=== PATIENT | female | born 1985 | race Caucasian/White ===

== ENCOUNTER → 2017-01-09 | Outpatient (CLI) | payer BC ==
[2017-01-09 14:28] LABS: BASOPHILS # (AUTO) 0.05 10*3/UL; BASOPHILS % (AUTO) 0.6 % (0-1); EOSINOPHILS # (AUTO) 0.18 10*3/UL; EOSINOPHILS % (AUTO) 2.2 % (0-8); LYMPHOCYTES # (AUTO) 2.65 10*3/uL; MEAN CORPUSCULAR HEMOGLOBIN 29.5 PG (27-31); MEAN CORPUSCULAR HGB CONC 33.3 g/dL (33-37); MEAN CORPUSCULAR VOLUME 88.6 FL (81-99); MEAN PLATELET VOLUME 9.4 FL (7.4-12.2); MONOCYTES # (AUTO) 0.71 10*3/UL (0.3-0.8); MONOCYTES % (AUTO) 8.6 % (5-15); NEUTROPHILS # (AUTO) 4.61 10*3/UL; NEUTROPHILS % (AUTO) 56.2 % (50-80); RED BLOOD COUNT 4.74 10^6/uL (4.20-5.40)
[2017-01-09 14:29] LABS: PLATELET MORPHOLOGY COMMENT NORMAL MORPHOLOGY (NORM); RBC MORPHOLOGY COMMENT NORMAL MORPHOLOGY (NORM); WBC MORPHOLOGY COMMENT NORMAL MORPHOLOGY (NORM)
[2017-01-09 15:55] LABS: HIV ANTIBODY NEGATIVE (N); HIV-1 P24 ANTIGEN NEGATIVE (N)
[2017-01-11 16:17] LABS: HEP B SURFACE AG Negative (Negative)
== END ==
LOC: MOB LAB 13:39
PROVIDERS: ATTEND Obstetrics & Gynecology
DX: Z36 Encounter for antenatal screening of mother (principal); Z3A.08 8 weeks gestation of pregnancy
CPT/HCPCS: 36415; 80081; 86900; 86901; 87088

== ENCOUNTER → 2017-03-28 | Outpatient (CLI) | payer BC ==
--- NOTE | 2017-03-30 08:23 | DI ---
OBSTETRICAL ULTRASOUND, 03/28/2017 9:03 AM: Clinical History: Antepartum screening. Previous Exam: None at this facility for this . ADJUSTED DATE FROM EARLY OBUS: 11/06/2016. There is a single live IUP currently in vertex presentation. Amnionic fluid content is normal. activity is observed as follows: cardiac, extremity, and respiratory. The placenta is anterior corpus and Grade 1. heart rate is 152 beats/minute and regular. There is a 3 vessel cord. The RVOT, L VOT and 4 chamber heart view are normal. The aortic arch and descending aorta are normal. Views of th e spine, face, and kidneys are unremarkable. BPD, HC, AC, and FL measurements are 45 mm, 168 mm , 136 mm, and 32 mm, respectively. These measurements correspond to EGA values of 19 weeks 5 days, 19 weeks 4 days, 19 weeks 1 day and 20 weeks 0 days, respectively. Composite EGA is 19 weeks 5 days. Th e US EDC is 08/17/2017. EDC by adjusted LMP is 08/13/2017. Readin. Single live fetus with vertex presentation and normal amniotic fluid content. Placenta is anterio r corpus and grade 1. 2. The composite EGA is 19 weeks 5 days with an ultrasound EDC of 08/17/2017. Based on the adjusted L MP date of 11/06/2016, the EDC would be 08/13/2016.
== END ==
LOC: US 08:58
PROVIDERS: ATTEND Obstetrics & Gynecology
DX: Z36 Encounter for antenatal screening of mother (principal); Z3A.19 19 weeks gestation of pregnancy
CPT/HCPCS: 76805